=== PATIENT | female | born 1980 | race Caucasian/White ===

== ENCOUNTER 2018-07-13 19:26 | Emergency (ER) | payer MEDICAID ==
[~2018-07-13] VITALS: Ht 160 cm; Wt 69.0 kg
[2018-07-13 19:51] VITALS: Ht 160 cm; Wt 69.0 kg
[2018-07-13 20:53] VITALS: BP 129/82
== END 2018-07-13 20:53 | disposition home or self-care (01) ==
LOC: ED 19:26
DX: J70.5 Respiratory conditions due to smoke inhalation (principal); Z00.00 Encounter for general adult medical examination without abnormal findings